=== PATIENT | female | born 1960 | race Caucasian/White ===

== ENCOUNTER → 2017-11-09 | Outpatient (CLI) | payer BC ==
[~2017-11-09] MED LIST: ACET1TAB64 PO; BACL20TA PO; THYR180T PO; ZOLP10TA PO; [UNRECOGNIZED DRUG - CODE] TP
[2017-11-09 12:25] LABS: BASOPHILS # (AUTO) 0.03 x10^3/uL (0-0.1); BASOPHILS % (AUTO) 0 % (0-1); EOSINOPHILS # (AUTO) 0.04 x10^3/uL (0-0.4); EOSINOPHILS % (AUTO) 1 % (1-7); LYMPHOCYTES # (AUTO) 2.13 x10^3/uL (1-3.4); LYMPHOCYTES % (AUTO) 26 % (22-44); MD NO; MEAN CORPUSCULAR HEMOGLOBIN 31.9 pg (27.0-34.8); MEAN CORPUSCULAR HGB CONC 33.6 g/dL (32.4-35.8); MEAN CORPUSCULAR VOLUME 94.9 fL (80-100); MEAN PLATELET VOLUME 9.5 fL (7.4-10.4); MONOCYTES # (AUTO) 0.36 x10^3/uL (0.2-0.8); MONOCYTES % (AUTO) 5 % (2-9); NEUTROPHILS # (AUTO) 5.49 x10^3/uL (1.8-6.8); NEUTROPHILS % (AUTO) 68 % (42-75); PLATELET COUNT 273 x10^3/uL (130-400); RED BLOOD COUNT 4.47 x10^6/uL (3.82-5.3); RED CELL DISTRIBUTION WIDTH 12.4 % (9.6-15.2)
[2017-11-09 12:32] LABS: INTERNATIONAL NORMALIZED RATIO 0.93 (0.93-1.1); PROTHROMBIN TIME 9.7 Seconds (9.6-11.5)
[2017-11-09 12:34] LABS: ALANINE AMINOTRANSFERASE 32 U/L (12-78); ALBUMIN 3.6 g/dL (3.4-5.0); ANION GAP 5 mmol/L (5-15); CALCIUM 9.5 mg/dL (8.5-10.1); CHLORIDE 109 mmol/L (98-107)
[2017-11-09 12:37] LABS: ALKALINE PHOSPHATASE 60 U/L (45-117); BILIRUBIN,TOTAL 0.3 mg/dL (0.2-1.0); CREATININE 0.62 mg/dL (0.55-1.02); TOTAL PROTEIN 6.9 g/dL (6.4-8.2)
== END | disposition home or self-care (01) ==
LOC: STAR 11:14
PROVIDERS: ATTEND Specialist
DX: Z87.891 Personal history of nicotine dependence (principal); R19.07 Generalized intra-abdominal and pelvic swelling, mass and lump
CPT/HCPCS: 36415; 71046; 80053; 85025; 85610; 85730; 93005

== ENCOUNTER 2017-11-15 09:16 | Day surgery (SDC) | payer BC ==
[~2017-11-15] VITALS: Ht 160 cm; Wt 56.8 kg
[~2017-11-15 09:16] MED LIST changes: +BUPIVACAINE/PF 0.25% ONE
[2017-11-15] MEDS ORDERED: LACTATED RINGERS 1,000 ML IV SCH (09:45)
[2017-11-15] MEDS ORDERED: LISI-170 PO (09:47)
[2017-11-15] MEDS ORDERED: MIDAZOLAM 1 MG/ML, 2ML ONE (12:27)
[2017-11-15] MEDS ORDERED: FENTANYL PF 250 MCG/5ML ONE (12:27)
[2017-11-15] MEDS ORDERED: OxyconTIN ER 10 MG TAB.ER ONE (12:52)
[2017-11-15] MEDS ORDERED: GABAPENTIN 300 MG CAPSULE ONE (12:52)
[2017-11-15] MEDS ORDERED: ACETAMINOPHEN 500 MG TABLET ONE (12:52)
[2017-11-15] MEDS ORDERED: SCOPOLAMINE PATCH, 1.5MG PATCH.TD72 TD ONE (12:59)
[2017-11-15] MEDS ORDERED: ONDANSETRON 2MG/ML, 2ML ONE (13:12)
[2017-11-15] MEDS ORDERED: hydrALAzine 20 MG/ML, 1ML ONE (13:12)
[2017-11-15] MEDS ORDERED: DEXAMETHASONE 4 MG/ML, 1ML ONE (13:12)
[2017-11-15] MEDS ORDERED: CEFAZOLIN 1,000 MG ONE (13:12)
[2017-11-15] MEDS ORDERED: PROPOFOL 10 MG/ML, 20ML ONE (13:12)
[2017-11-15] MEDS ORDERED: ROCURONIUM 10MG/ML,5ML ONE (13:12)
[2017-11-15] MEDS ORDERED: LORazepam 2 MG/ML, 1ML IVPush PRN (14:30)
[2017-11-15] MEDS ORDERED: ALBUTEROL SULFATE 2.5 MG/3 ML NPPB PRN (14:30)
[2017-11-15] MEDS ORDERED: LABETALOL 5MG/ML, 20ML IV PRN (14:30)
[2017-11-15] MEDS ORDERED: MEPERIDINE/PF 25MG/0.5ML IVPush PRN (14:30)
[2017-11-15] MEDS ORDERED: hydrALAzine 20 MG/ML, 1ML IV PRN (14:30)
[2017-11-15] MEDS ORDERED: OXYcodone 5 MG/5 ML ORAL.SOL UDC PO PRN (14:30)
[2017-11-15] MEDS ORDERED: PROMETHAZINE 25 MG SUPP PR PRN (14:30)
[2017-11-15] MEDS ORDERED: PROMETHAZINE 25 MG/ML, 1ML IV PRN (14:30)
[2017-11-15] MEDS ORDERED: FENTANYL PF 100 MCG/2ML ONE (14:38)
[2017-11-15] MEDS: FENTANYL PF 100 MCG/2ML IV PRN ×2 (14:40→14:55)
[2017-11-15] MEDS ORDERED: HYDROmorphone 1 MG/ML, 1ML ONE (14:42)
[2017-11-15] MEDS: HYDROmorphone 1 MG/ML, 1ML IV PRN ×4 (14:45→15:20)
[2017-11-15] MEDS ORDERED: PROMETHAZINE 25 MG/ML, 1ML ONE (14:48)
[2017-11-15] MEDS ORDERED: LABETALOL 5MG/ML, 20ML ONE (15:34)
[2017-11-15] MEDS ORDERED: morphine SULFATE 10 MG/ML, 1ML ONE (16:19)
[2017-11-15] MEDS ORDERED: METOCLOPRAMIDE 10MG TABLET PO PRN (16:30)
[2017-11-15] MEDS ORDERED: ONDANSETRON 4 MG TABLET PO PRN (16:30)
[2017-11-15] MEDS ORDERED: KETOROLAC 30 MG/1 ML IVPush PRN (16:30)
[2017-11-15] MEDS ORDERED: MORPHINE SULFATE 4 MG/ML, 1ML IVPush PRN (16:30)
[2017-11-15] MEDS ORDERED: OXYcodone/APAP 7.5/325MG TABLET PO PRN (16:30)
== END 2017-11-15 19:00 | disposition home or self-care (01) ==
LOC: OUT 09:16
PROVIDERS: ATTEND Specialist
DX: N94.10 Unspecified dyspareunia (principal); N83.8 Other noninflammatory disorders of ovary, fallopian tube and broad ligament; N83.299 Other ovarian cyst, unspecified side; N73.6 Female pelvic peritoneal adhesions (postinfective); I10 Essential (primary) hypertension; E03.9 Hypothyroidism, unspecified; K21.9 Gastro-esophageal reflux disease without esophagitis; Z88.0 Allergy status to penicillin; Z88.1 Allergy status to other antibiotic agents; Z98.890 Other specified postprocedural states; Z90.710 Acquired absence of both cervix and uterus; Z72.89 Other problems related to lifestyle; Z87.891 Personal history of nicotine dependence
CPT/HCPCS: 36415; 58661; 86850; 86900; 86923; 88305; J0360; J0690; J1100; J1170; J2250; J2405; J2550; J2704; J3010; J3490; J7120; S2900